=== PATIENT | male | born 1995 | race Caucasian/White ===

== ENCOUNTER 2017-01-02 21:52 | Emergency (ER) | payer BC ==
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
== END 2017-01-02 22:50 | disposition home or self-care (01) ==
LOC: ER 21:52
DX: S60.221A Contusion of right hand, initial encounter (principal); F17.210 Nicotine dependence, cigarettes, uncomplicated; W23.0XXA Caught, crushed, jammed, or pinched between moving objects, initial encounter